=== PATIENT | male | born 2000 | race Caucasian/White ===

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

== ENCOUNTER 2021-12-06 17:59 | Emergency (ER) | payer BC ==
--- OUTSIDE RECORDS SUMMARY | 2021-12-06 18:02 | XMS REPORT | Continuity of Care Document ---
:2000 Author Organization [facility] t Address [address] [place] [address] [place] [id number] Care Team Providers Name Role Phone Unavailable Unavailable Unavailable Problems This patient has no known problems. Allergies, Adverse Reactions, Alerts This patient has no known allergies or adverse reactions. Medications This patient has no known medications. Procedures This patient has no known procedures. Results This patient has no known results.
[2021-12-06] MEDS ORDERED: ASPIRIN 325 MG TAB ONE (18:43)
[2021-12-06] MEDS ORDERED: DIAZEPAM 10 MG/2 ML INJ SYRINGE ONE (18:43)
[2021-12-06] MEDS ORDERED: CETIRIZINE HCL 5 MG TABLET ONE (18:43)
[2021-12-06] MEDS ORDERED: ACETAMINOPHEN 500 MG TAB ONE (18:43)
[2021-12-06] MEDS ORDERED: FAMOTIDINE 20 MG/2 ML VIAL IV ONE (18:44)
[2021-12-06] MEDS ORDERED: ONDANSETRON 4 MG/2 ML VIAL ONE (18:44)
[2021-12-06] MEDS ORDERED: NA CHLORIDE 0.9% 1,000 ML ONE ×2 (18:55→19:47)
[2021-12-06 18:59] LABS: Absolute Lymphocytes (CBC) 0.5 K/uL (0.7-4.9); Hematocrit 41.1 % (39.6-49.0); Lymphocytes % 8.9 % (15.3-44.8); MCV 76.9 fL (80-100); MPV 6.7 fL (7.6-11.3); RBC Red Blood Cell Count 5.34 M/uL (4.33-5.43)
[2021-12-06 19:13] LABS: Albumin 3.8 g/dL (3.4-5.0); Bilirubin Total 0.3 mg/dL (0.2-1.0); Potassium 3.3 mmol/L (3.5-5.1); Protein, Total 7.5 g/dL (6.4-8.2)
[2021-12-06] MEDS ORDERED: FAMOTIDINE 20 MG TAB ONE (20:38)
[2021-12-06] MEDS ORDERED: AZITHROMYCIN 250 MG TAB ONE (20:38)
[2021-12-06] MEDS ORDERED: POTASSIUM 25 MEQ EFFERV TAB ONE (21:23)
--- NOTE | 2021-12-06 21:42 | ER ---
Nurse's Notes [facility] Name: Donell Merrill Age: 21 yrs Sex: Male : 2000 Arrival Date: 12/06/2021 Time: 18:00 Bed 19 Private MD: Diagnosis: Coronavirus infection, unspecified;SARS-associated coronavirus as the cause of diseases classified elsewhere;Fever, unspecified;Hypokalemia Presentation: 12/06 18:09 Chief complaint: Patient states: tested positive for COVID today, c/o diff breathing , iw migraine, hands numbness, skin sensitivity, no cough, symptoms started today , had motrin and naproxen and an albuterol breathing treatment. Coronavirus screen: Client presents with at least one sign or symptom that may indicate coronavirus-19. Ebola Screen: Patient negative for fever greater than or equal to 101.5 degrees Fahrenheit, and additional compatible Ebola Virus Disease symptoms Patient denies exposure to infectious person. Patient denies travel to an Ebola-affected area in the 21 days before illness onset. No symptoms or risks identified at this time. Initial Sepsis Screen: Does the patient meet any 2 criteria? RR > 20 per min. HR > 90 bpm. Does the patient have a suspected source of infection? No. Patient's initial sepsis screen is negative. Risk Assessment: Do you want to hurt yourself or someone else? Patient reports no desire to harm self or others. Onset of symptoms was December 06, 2021. 18:09 Method Of Arrival: Ambulatory iw 18:09 Acuity: MICHAEL 3 iw Historical: - Allergies: 18:11 No Known Allergies; iw - Home Meds: 18:11 None [Active]; iw - PMHx: 18:11 ADD/ADHD; iw - PSHx: 18:11 None; iw Screenin:14 Abuse screen: Denies threats or abuse. Denies injuries from another. Nutritional mb8 screening: No deficits noted. Tuberculosis screening: No symptoms or risk factors identified. Fall Risk None identified. Assessment: 18:13 General: Appears uncomfortable, ill, Behavior is calm, cooperative, appropriate for mb8 age. Cardiovascular: Reports fatigue, lightheadedness, nausea, shortness of breath. Respiratory: Airway is patent Respiratory effort is even, Respiratory pattern is tachypnea Breath sounds are clear bilaterally. 19:06 General: Appears uncomfortable, Behavior is calm, cooperative. Pain: Complains of pain kd3 in body aches. Neuro: Level of Consciousness is awake, alert, obeys commands, Oriented to person, place, time, situation. Cardiovascular: Patient's skin is warm and dry. Rhythm is sinus rhythm. 19:42 Reassessment: Patient and/or family updated on plan of care and expected duration. Pain kd3 level reassessed. Patient is alert, oriented x 3, equal unlabored respirations, skin warm/dry/pink. 21:23 Reassessment: Patient and/or family updated on plan of care and expected duration. Pain kd3 level reassessed. Patient is alert, oriented x 3, equal unlabored respirations, skin warm/dry/pink. Patient states feeling better. Patient states symptoms have improved. Vital Signs: 18:09 BP 137 / 77; Pulse 136; Resp 22; Temp 101.2; Pulse Ox 99% on R/A; iw 19:05 BP 124 / 76; Pulse 109; Resp 20; Temp 100.2; Pulse Ox 100% on R/A; kd3 21:23 BP 107 / 39; Pulse 99; Resp 19; Temp 100.6(O); Pulse Ox 98% on R/A; kd3 Jessica Coma Score: 18:13 Eye Response: spontaneous(4). Verbal Response: oriented(5). Motor Response: obeys snw commands(6). Total: 15. ED Course: 18:00 Patient arrived in ED. am2 18:00 Luiza Martinez FNP-C is [facility]. snw 18:00 Dion Scott MD is Attending Physician. snw 18:11 Triage completed. iw 18:12 Arm band placed on. iw 18:13 Sergey Flowers, RN is Primary Nurse. mb8 18:14 Patient has correct armband on for positive identification. mb8 18:14 No provider procedures requiring assistance completed. mb8 18:44 Flu Sent. mb8 18:44 SARS-COV-2 RT PCR (Document "Date of Onset" if Symptomatic) Sent. mb8 20:02 Attending Physician role handed off by Dion Scott MD carlita 20:02 Braeden Mcgovern MD is Attending Physician. carlita 20:37 Lactate Sent. kd3 21:54 IV discontinued, intact, bleeding controlled, No redness/swelling at site. Pressure tw5 dressing applied. Administered Medications: 18:43 CANCELLED (Physician Discretion): Ondansetron 4 mg PO once mb8 18:43 Drug: Aspirin 325 mg Route: PO; mb8 19:41 Follow up: Response: No adverse reaction kd3 18:43 Drug: Zofran (Ondansetron) 4 mg Route: IVP; Site: right antecubital; mb8 19:41 Follow up: Response: No adverse reaction; Nausea is decreased kd3 18:44 Drug: Pepcid (famotidine) 20 mg Route: IVP; Site: right antecubital; mb8 19:42 Follow up: Response: No adverse reaction kd3 18:44 Drug: Valium (diazepam) 5 mg Route: IVP; Site: right antecubital; mb8 19:42 Follow up: Response: No adverse reaction kd3 18:44 Drug: Tylenol 1000 mg Route: PO; mb8 19:42 Follow up: Response: No adverse reaction; Temperature is decreased kd3 18:44 Drug: ZyrTEC - Cetirizine 10 mg Route: PO; mb8 19:42 Follow up: Response: No adverse reaction kd3 18:46 Drug: NS 0.9% 1000 ml Route: IV; Rate: 1 bolus; Site: right antecubital; mb8 19:41 Drug: NS 0.9% 1000 ml Route: IV; Rate: 1 bolus; Site: right antecubital; kd3 20:36 Drug: Zithromax (azithromycin) 500 mg Route: PO; kd3 21:22 Follow up: Response: No adverse reaction kd3 20:37 Drug: Pepcid (famotidine) 20 mg Route: PO; kd3 21:22 Follow up: Response: No adverse reaction kd3 21:22 Drug: Potassium Effervescent Tablet 25 mEq Route: PO; kd3 21:30 Follow up: Response: No adverse reaction kd3 Medication: 18:14 VIS not applicable for this client. mb8 Outcome: 21:42 Discharge ordered by . carlita 21:54 Discharged to home ambulatory, with family. tw5 21:54 Condition: improved 21:54 Discharge instructions given to patient, family, Instructed on discharge instructions, follow up and referral plans. medication usage, Demonstrated understanding of instructions, follow-up care, medications, Prescriptions given X 4. 21:54 Patient left the ED. tw5 Signatures: Braeden Mcgovern MD MD cha Waters, Shelly, TON CYLINDER INSPECTOR-C TON CYLINDER INSPECTOR-Csnw Avelina Martinez, RN RN Phoebe Ventura Tiffany tw5 Nory Rosario RN RN kd3 Sergey Flowers RN RN mb8
--- NOTE | 2021-12-06 21:42 | EDPHYS ---
Physician Documentation [facility] Name: Donell Merrill Age: 21 yrs Sex: Male : 2000 Arrival Date: 12/06/2021 Time: 18:00 Bed 19 Private MD: ED Physician Braeden Mcgovern HPI: 12/06 18:22 This 21 yrs old Male presents to ER via Ambulatory with complaints of Breathing snw Difficulty, covid+. 18:22 The patient has shortness of breath at rest. Onset: The symptoms/episode began/occurred snw suddenly, today. Duration: The symptoms are continuous, and are steadily getting worse. Associated signs and symptoms: Pertinent positives: non-productive cough, fever, nausea, vomiting. Severity of symptoms: At their worst the symptoms were moderate. The patient has not experienced similar symptoms in the past. It is unknown whether or not the patient has recently seen a physician. + covid test today at home. Historical: - Allergies: 18:11 No Known Allergies; iw - Home Meds: 18:11 None [Active]; iw - PMHx: 18:11 ADD/ADHD; iw - PSHx: 18:11 None; iw ROS: 18:21 Eyes: Negative for injury, pain, redness, and discharge, ENT: Negative for injury, snw pain, and discharge, Neck: Negative for injury, pain, and swelling. 18:21 : Negative for injury, bleeding, discharge, and swelling, MS/Extremity: Negative for injury and deformity, Skin: Negative for injury, rash, and discoloration. 18:21 Psych: Negative for depression, anxiety, suicide ideation, homicidal ideation, and hallucinations. 18:21 Constitutional: Positive for body aches, chills, fatigue, fever, malaise. 18:21 Cardiovascular: Positive for palpitations. 18:21 Respiratory: Positive for cough, shortness of breath. 18:21 Abdomen/GI: Positive for nausea, vomiting. 18:21 Back: Positive for pain at rest. 18:21 Neuro: Positive for headache. Exam: 18:13 Eyes: Pupils equal round and reactive to light, extra-ocular motions intact. Lids and snw lashes normal. Conjunctiva and sclera are non-icteric and not injected. Cornea within normal limits. Periorbital areas with no swelling, redness, or edema. ENT: Nares patent. No nasal discharge, no septal abnormalities noted. Tympanic membranes are normal and external auditory canals are clear. Oropharynx with no redness, swelling, or masses, exudates, or evidence of obstruction, uvula midline. Mucous membranes moist. Neck: Trachea midline, no thyromegaly or masses palpated, and no cervical lymphadenopathy. Supple, full range of motion without nuchal rigidity, or vertebral point tenderness. No Meningismus. Chest/axilla: Normal chest wall appearance and motion. Nontender with no deformity. No lesions are appreciated. 18:13 Abdomen/GI: Soft, non-tender, with normal bowel sounds. No distension or tympany. No guarding or rebound. No evidence of tenderness throughout. Back: No spinal tenderness. No costovertebral tenderness. Full range of motion. MS/ Extremity: Pulses equal, no cyanosis. Neurovascular intact. Full, normal range of motion. Neuro: Awake and alert, GCS 15, oriented to person, place, time, and situation. Cranial nerves II-XII grossly intact. Motor strength 5/5 in all extremities. Sensory grossly intact. Cerebellar exam normal. Normal gait. 18:13 Constitutional: The patient appears alert, anxious, obese, uncomfortable. 18:13 Head/face: Noted is pallor. 18:13 Cardiovascular: Rate: tachycardic, Rhythm: regular, Pulses: no pulse deficits are appreciated, Heart sounds: normal. 18:13 Respiratory: the patient does not display signs of respiratory distress, Respirations: shallow respirations, tachypnea, that is moderate, Breath sounds: are clear throughout. 18:13 Skin: tinea versicolor. 18:13 Psych: Behavior/mood is anxious, Oriented to person, place, time. Vital Signs: 18:09 BP 137 / 77; Pulse 136; Resp 22; Temp 101.2; Pulse Ox 99% on R/A; iw 19:05 BP 124 / 76; Pulse 109; Resp 20; Temp 100.2; Pulse Ox 100% on R/A; kd3 21:23 BP 107 / 39; Pulse 99; Resp 19; Temp 100.6(O); Pulse Ox 98% on R/A; kd3 Jessica Coma Score: 18:13 Eye Response: spontaneous(4). Verbal Response: oriented(5). Motor Response: obeys snw commands(6). Total: 15. MDM: 18:13 Data reviewed: vital signs, nurses notes. ED course: Pt tested positive for CoVid on snw home test today. Neb tx prior to arrival. Temp 101.2 so HR 136bpm. Pt hyperventilating at 25 times/min. Pt meets sepsis markers but infection is viral. Will repeat CoVId PCR to confirm. 18:28 Patient medically screened. snw 19:34 Data interpreted: Pulse oximetry: on room air is 100 %. Interpretation: normal. snw Counseling: I had a detailed discussion with the patient and/or guardian regarding: the historical points, exam findings, and any diagnostic results supporting the discharge/admit diagnosis, lab results. 20:04 Physician consultation: Braeden Mcgovern MD was called at 20:05, was contacted at 20:05, snw regarding patient's condition, care transferred to Braeden Mcgovern MD. Transition of care: After a detail discussion of the patient's case, care is transferred to Braeden Mcgovern MD. 12/06 18:13 Order name: Lactate; Complete Time: 19:33 snw 12/06 18:13 Order name: CBC with Diff; Complete Time: 19:05 snw 12/06 18:13 Order name: CMP; Complete Time: 19:16 snw 12/06 18:13 Order name: Procalcitonin; Complete Time: 20:04 snw 12/06 18:21 Order name: Flu; Complete Time: 19:16 snw 12/06 18:21 Order name: SARS-COV-2 RT PCR (Document "Date of Onset" if Symptomatic); Complete Time: snw 19:37 12/06 19:37 Order name: Lactate; Complete Time: 21:42 snw 12/06 18:13 Order name: IV Saline Lock; Complete Time: 18:44 snw 12/06 18:13 Order name: Labs collected and sent; Complete Time: 18:44 snw 12/06 19:00 Order name: Recheck VS; Complete Time: 19:06 snw Administered Medications: 18:43 CANCELLED (Physician Discretion): Ondansetron 4 mg PO once mb8 18:43 Drug: Aspirin 325 mg Route: PO; mb8 19:41 Follow up: Response: No adverse reaction kd3 18:43 Drug: Zofran (Ondansetron) 4 mg Route: IVP; Site: right antecubital; mb8 19:41 Follow up: Response: No adverse reaction; Nausea is decreased kd3 18:44 Drug: Pepcid (famotidine) 20 mg Route: IVP; Site: right antecubital; mb8 19:42 Follow up: Response: No adverse reaction kd3 18:44 Drug: Valium (diazepam) 5 mg Route: IVP; Site: right antecubital; mb8 19:42 Follow up: Response: No adverse reaction kd3 18:44 Drug: Tylenol 1000 mg Route: PO; mb8 19:42 Follow up: Response: No adverse reaction; Temperature is decreased kd3 18:44 Drug: ZyrTEC - Cetirizine 10 mg Route: PO; mb8 19:42 Follow up: Response: No adverse reaction kd3 18:46 Drug: NS 0.9% 1000 ml Route: IV; Rate: 1 bolus; Site: right antecubital; mb8 19:41 Drug: NS 0.9% 1000 ml Route: IV; Rate: 1 bolus; Site: right antecubital; kd3 20:36 Drug: Zithromax (azithromycin) 500 mg Route: PO; kd3 21:22 Follow up: Response: No adverse reaction kd3 20:37 Drug: Pepcid (famotidine) 20 mg Route: PO; kd3 21:22 Follow up: Response: No adverse reaction kd3 21:22 Drug: Potassium Effervescent Tablet 25 mEq Route: PO; kd3 21:30 Follow up: Response: No adverse reaction kd3 Disposition: 12/07 11:27 Chart complete. snw Disposition Summary: 12/06/21 21:42 Discharge Ordered Location: Home carlita Problem: new carlita Symptoms: have improved carlita Condition: Stable carlita Diagnosis - Coronavirus infection, unspecified carlita - SARS-associated coronavirus as the cause of diseases classified elsewhere carlita - Fever, unspecified carlita - Hypokalemia carlita Followup: carlita - With: Private Physician - When: 2 - 3 days - Reason: Recheck today's complaints, Continuance of care, Re-evaluation by your physician Discharge Instructions: - Discharge Summary Sheet carlita - Fever, Adult carlita - Viral Respiratory Infection, [id number] carlita - Aspirin and Your Heart carlita - COVID-19 carlita - COVID-19 Frequently Asked Questions carlita - Things to Know about the COVID-19 Pandemic - [facility] carlita - 10 Things You Can Do to Manage Your COVID-19 Symptoms at Home - [facility] carlita - COVID-19: Quarantine vs. Isolation - [facility] - Prevent the Spread of COVID-19 if You Are Sick - [facility] - Viral Illness, Adult [facility] Forms: - Medication Reconciliation Form carlita - Thank You Letter carlita - Antibiotic Education [facility] - Prescription Opioid Use [facility] Prescriptions: - Pepcid 20 mg Oral Tablet - take 1 tablet by ORAL route every 12 hours for 21 days; 42 tablet; Refills: 0, [facility] Product Selection Permitted - budesonide 180 mcg/actuation Inhalation aerosol powdr breath activated - inhale 1 puff by INHALATION route 2 times per day; 1 Pump; Refills: 0, Product carlita Selection Permitted - Tessalon Perles 100 mg Oral Capsule - take 2 capsule by ORAL route every 8 hours As needed; 45 capsule; Refills: 0, [facility] Product Selection Permitted - Zithromax Z-Alexander 250 mg Oral Tablet - take 1 tablet by ORAL route as directed for 5 days Day 1 - take two (2) tablets [facility] one time. Day 2, 3, 4 , 5 take one (1) tablet once daily.; 6 tablet; Refills: 0, Product Selection Permitted Signatures: Dispatcher [employer] EDBraeden Schmidt MD MD cha Waters, Shelly, UPHOLSTERY ESTIMATOR-C UPHOLSTERY ESTIMATOR-Csnw Avelina Martinez RN Nory Maya RN RN kd3 Sergey Flowers RN RN mb8 Corrections: (The following items were deleted from the chart) 12/06 18:43 18:13 Ondansetron 4 mg PO once ordered. [email or web address] mb8
[2021-12-06 23:22] VITALS: BP 107/39; TEMP 100.6; O2SAT 98
== END 2021-12-06 21:54 | disposition home or self-care (01) ==
LOC: ER 17:59
DX: U07.1 COVID-19 (principal); E87.6 Hypokalemia
CPT/HCPCS: 85025; 36415; 83605 ×2; 80053; 84145; 87804 ×2; 96375; 96374; 99284; U0003; J3360; J7030 ×2; J2405

== ENCOUNTER 2023-07-08 12:30 | Emergency (ER) | payer BC ==
--- OUTSIDE RECORDS SUMMARY | 2023-07-08 12:33 | XMS REPORT | Continuity of Care Document ---
Author Name Unknown Address [address] [place] [address] [employer] Address [address] [place] [address] [address] [place] [address] Care Team Providers Care Spot Sprayer Name Role Phone Unavailable Unavailable Unavailable
[2023-07-08 13:28] LABS: Absolute Basophils 0.1 K/uL (0-0.5); Absolute Eosinophils 0.2 K/uL (0-0.5); Absolute Lymphocytes (CBC) 2.9 K/uL (0.7-4.9); Absolute Monocytes 0.6 K/uL (0.1-1.3); Absolute Neutrophil 7.7 K/uL (1.8-8.0); Eosinophils % 1.8 % (0-4.4); Hemoglobin 14.4 g/dL (13.6-17.9); Lymphocytes % 25.3 % (15.3-44.8); MCHC 33.5 g/dL (32.0-36.0); MCV 77.8 fL (80-100); Monocytes % 5.1 % (3.3-12.3); Neutrophils % 66.8 % (41.7-73.7); Nucleated RBC Absolute Count 0.1 (0-0); Nucleated Red Blood Cells % 0.6 % (0-0); Platelets 340 thou/uL (152-406); RBC Red Blood Cell Count 5.53 M/uL (4.33-5.43); Red Cell Distribution Width 14.3 % (12.1-15.2)
[2023-07-08 13:40] LABS: Anion Gap 8.6 mEq/L (5.0-15.0); Potassium 3.6 mEq/L (3.5-5.1); Troponin High Sensitivity 3.3 pg/mL (<58.9)
--- NOTE | 2023-07-08 14:06 | RAD REPORT ---
EXAM DESCRIPTION: RAD - Chest Single View - 07/08/2023 1:45 pm CLINICAL HISTORY: CHEST PAIN Chest pain. COMPARISON: CHEST PA AND LAT 2 VIEW dated 08/20/2014; CHEST SINGLE VIEW dated 03/03/2011 FINDINGS: Portable technique limits examination quality. The lungs are grossly clear. The heart is normal in size. No displaced fractures. IMPRESSION: No acute intrathoracic process suspected.
--- NOTE | 2023-07-08 14:08 | ER ---
Nurse's Notes [facility] Name: Donell Merrill Age: 23 yrs Sex: Male : 2000 Arrival Date: 07/08/2023 Time: 12:30 Bed 20 Private MD: Diagnosis: Chest pain, unspecified Presentation: 07/07 12:42 Chief complaint: Sudden onset midsternal chest pain and palpitations while walking in [place] [employer] at work 3 hours [employer]. Coronavirus screen: At this time, the client does not indicate any symptoms associated with coronavirus-19. Ebola Screen: No symptoms or risks identified at this time. Initial Sepsis Screen: Does the patient meet any 2 criteria? No. Patient's initial sepsis screen is negative. Does the patient have a suspected source of infection? No. Patient's initial sepsis screen is negative. Risk Assessment: Do you want to hurt yourself or someone else? Patient reports no desire to harm self or others. Onset of symptoms was July 08, 2023. 12:42 Method Of Arrival: Ambulatory hb 12:42 Acuity: MICHAEL 3 hb Triage Assessment: 12:43 General: Appears in no apparent distress. Behavior is calm, cooperative. Pain: Pain hb currently is 4 out of 10 on a pain scale. Neuro: Level of Consciousness is awake, alert, obeys commands, Oriented to person, place, time, situation. Cardiovascular: Reports chest pain, Patient's skin is warm and dry. Respiratory: Respiratory effort is even, unlabored, Respiratory pattern is regular, symmetrical. Historical: - Allergies: 12:43 No Known Allergies; hb - Home Meds: 12:43 None [Active]; hb - PMHx: 12:43 ADD/ADHD; hb - PSHx: 12:43 None; hb - Immunization history:: Adult Immunizations up to date. - Infectious Disease History:: Denies. - Social history:: Smoking status: Patient denies any tobacco usage or history of. Screenin:31 [facility] ED Fall Risk Assessment (Adult) History of falling in the last 3 months, ld1 including since admission No falls in past 3 months (0 pts). Abuse screen: Denies threats or abuse. Denies injuries from another. Nutritional screening: No deficits noted. Tuberculosis screening: No symptoms or risk factors identified. Assessment: 13:31 General: Appears in no apparent distress. comfortable, Behavior is calm, cooperative, ld1 appropriate for age. Pain: Complains of pain in chest Pain does not radiate. Pain currently is 8 out of 10 on a pain scale. Quality of pain is described as throbbing, Pain began suddenly, Is continuous. Neuro: Level of Consciousness is awake, alert, obeys commands, Oriented to person, place, time, situation. Cardiovascular: Capillary refill < 3 seconds Patient's skin is warm and dry. Rhythm is sinus rhythm. Respiratory: Airway is patent Respiratory effort is even, unlabored. GI: Abdomen is round non-distended. : No signs and/or symptoms were reported regarding the genitourinary system. EENT: No signs and/or symptoms were reported regarding the EENT system. Derm: No signs and/or symptoms reported regarding the dermatologic system. Musculoskeletal: No signs and/or symptoms reported regarding the musculoskeletal system. Vital Signs: 12:42 BP 155 / 94; Pulse 81; Resp 16; Temp 97.7(TE); Pulse Ox 100% on R/A; Weight 140.61 kg; hb Height 6 ft. 2 in. ; Pain 4/10; 13:31 BP 133 / 77; Pulse 66; Resp 18; Pulse Ox 98% on R/A; Pain 8/10; ld1 12:42 Body Mass Index 39.80 (140.61 kg, 187.96 cm) hb 12:42 Pain Scale: Adult hb 13:31 Pain Scale: Adult ld1 ED Course: 12:33 Patient arrived in ED. mg5 12:34 Chad Grande MD is Attending Physician. bo1 12:40 EKG done, by ED staff, reviewed by Chad Grande MD. hb 12:43 Triage completed. hb 12:43 Arm band placed on. hb 12:53 Carol Flowers, JING is Primary Nurse. mg7 13:07 XRAY Chest (1 view) Sent. mg7 13:14 Inserted saline lock: 20 gauge in left antecubital area, using aseptic technique. Blood bp collected. 13:31 Patient has correct armband on for positive identification. Placed in gown. Bed in low ld1 position. Call light in reach. Side rails up X2. bus monitor on. Pulse ox on. NIBP on. Door closed. Noise minimized. Warm blanket given. 13:31 No provider procedures requiring assistance completed. Oxygen administration via nasal ld1 cannula. 13:47 XRAY Chest (1 view) In Process Unspecified. EDMS Administered Medications: No medications were administered Medication: 13:31 VIS not applicable for this client. ld1 Outcome: 14:08 Discharge ordered by MD. lopez 14:24 Patient left the ED. ld1 Signatures: Dispatcher [employer] EDMS Jennifer Ballesteros RN RN Arnaldo Mathews RN RN Naida Hernandez RN RN ld1 Radha Kat mg5 Chad Grande MD MD bo1 Carol Flowers RN RN mg7
--- NOTE | 2023-07-08 14:08 | EDPHYS ---
Physician Documentation [facility] Name: Donell Merrill Age: 23 yrs Sex: Male : 2000 Arrival Date: 07/08/2023 Time: 12:30 Bed 20 Private MD: ED Physician Chad Grande HPI: 07/07 14:11 This 23 yrs old Male presents to ER via Ambulatory with complaints of Chest Pain, High bo1 Blood Pressure, Palpitations. 12:54 The patient or guardian reports chest pain that is located primarily in the anterior bo1 chest wall, No radiation. Associated signs and symptoms: The patient has no apparent associated signs or symptoms. The chest pain is described as a pressure. Duration: The patient or guardian reports a single episode, that is still ongoing, and unchanged, that lasted 2.5 hour(s), while at work - school. Severity of pain: in the emergency department the pain is a 3 / 10. No prior Hx. 12:56 Pt reports that he "may have had" a fast heartbeat.. bo1 Historical: - Allergies: 12:43 No Known Allergies; hb - Home Meds: 12:43 None [Active]; hb - PMHx: 12:43 ADD/ADHD; hb - PSHx: 12:43 None; hb - Immunization history:: Adult Immunizations up to date. - Infectious Disease History:: Denies. - Social history:: Smoking status: Patient denies any tobacco usage or history of. ROS: 12:56 Cardiovascular: Negative for orthopnea, Exertional hx or sxs, bo1 12:56 All other systems are negative, 13:04 Respiratory: Negative for cough, dyspnea on exertion, shortness of breath, bo1 14:12 MS/extremity: Negative for acute changes, bo1 14:15 Neck: Negative for injury, pain, and swelling, bo1 Exam: 13:00 ECG was reviewed by the Attending Physician. bo1 13:05 Neck: Exam negative for lymphadenopathy, masses, swelling, bo1 13:05 Cardiovascular: Rate: normal, Rhythm: regular, Pulses: Pulses are 2+ in right brachial bo1 artery, left brachial artery, left carotid pulse and right carotid pulse. Heart sounds: normal, 13:05 Abdomen/GI: Palpation: abdomen is soft and non-tender, 13:59 Constitutional: The patient appears in no acute distress, well developed, well bo1 nourished, 13:59 Head/face: Exam is negative for 13:59 Chest/axilla: Exam negative for acute changes, crepitus, tenderness, 13:59 Respiratory: the patient does not display signs of respiratory distress, Respirations: normal, Breath sounds: are clear throughout, Respiratory rate: Normal rate 13:59 Musculoskeletal/extremity: Exam is negative for edema, 13:59 Skin: Exam negative for diaphoresis, pallor, 14:14 Head/Face: Normocephalic, atraumatic. bo1 Vital Signs: 12:42 BP 155 / 94; Pulse 81; Resp 16; Temp 97.7(TE); Pulse Ox 100% on R/A; Weight 140.61 kg; hb Height 6 ft. 2 in. ; Pain 4/10; 13:31 BP 133 / 77; Pulse 66; Resp 18; Pulse Ox 98% on R/A; Pain 8/10; ld1 12:42 Body Mass Index 39.80 (140.61 kg, 187.96 cm) hb 12:42 Pain Scale: Adult hb 13:31 Pain Scale: Adult ld1 MDM: 13:35 ED course: Pt is getting his portable xray. Unchanged condition, no new c/o. Mother bo1 still present. Awaiting labs. Reassured.. 13:53 ED course: Discussed lab reports and prelim wet read of the CXR.. bo1 13:58 Differential diagnosis: abnormal EKG, coronary artery disease chest wall pain. bo1 14:06 Patient medically screened. bo1 14:10 ED course: Advised pt to drink more fluids, water \\T\\ 6 - 8oz per day.. bo1 14:11 Data reviewed: vital signs, nurses notes, lab test result(s), EKG, radiologic studies. bo1 07/07 12:41 Order name: Basic Metabolic Panel; Complete Time: 13:43 bo1 07/07 12:41 Order name: CBC with Diff; Complete Time: 13:43 bo1 07/07 12:41 Order name: Troponin HS; Complete Time: 13:43 bo1 07/07 12:41 Order name: XRAY Chest (1 view); Complete Time: 14:06 bo1 07/07 12:41 Order name: EKG; Complete Time: 12:42 bo1 07/07 12:41 Order name: Cardiac monitoring; Complete Time: 12:53 bo1 07/07 12:41 Order name: EKG - Nurse/Tech; Complete Time: 12:58 bo1 07/07 12:58 Interpretation: Within normal limits. bo1 07/07 12:41 Order name: IV Saline Lock; Complete Time: 13:07 bo1 07/07 12:41 Order name: Labs collected and sent; Complete Time: 13:07 bo1 07/07 12:41 Order name: O2 Per Protocol; Complete Time: 13:06 bo1 07/07 12:41 Order name: O2 Sat Monitoring; Complete Time: 13:07 bo1 EC:00 Rate is 75 beats/min. Rhythm is regular. QRS [place] is Normal. ME interval is normal. QRS bo1 interval is normal. QT interval is normal. No Q waves. T waves are Inverted in lead III. No ST changes noted. Clinical impression: Normal ECG. Administered Medications: No medications were administered Disposition Summary: 07/08/23 14:08 Discharge Ordered Notes: Location: Home bo1 Problem: new bo1 Symptoms: are unchanged bo1 Condition: Stable bo1 Diagnosis - Chest pain, unspecified bo1 Followup: bo1 - With: Private Physician - When: As needed - Reason: Discharge Instructions: - Discharge Summary Sheet bo1 Forms: - Work release form ld1 - Medication Reconciliation Form bo1 - Thank You Letter bo1 - Antibiotic Education bo1 - Prescription Opioid Use bo1 - Patient Portal Instructions bo1 - Leadership Thank You Letter bo1 Prescriptions: - Naprosyn 500 mg Oral Tablet - take 1 tablet ORAL route 2 times per day take with food; 30 tablet; Refills: 0, bo1 Product Selection Permitted Signatures: Dispatcher [employer] EDJennifer Ramirez RN RN Chad Grande MD MD bo1 Corrections: (The following items were deleted from the chart) 12:57 12:54 The chest pain is described as a pressure, bo1 bo1
[2023-07-08 15:41] VITALS: BP 133/77; TEMP 97.7; O2SAT 98
--- NOTE | 2023-07-09 11:56 | EKG ---
Test Date: 2023-07-08 Test Time: 12:40:05 Cdl Instructor: HB MEASUREMENT RESULTS: Intervals: Rate: 75 OK: 146 QRSD: 96 QT: 350 QTc: 390 [place]: P: 32 OK: 146 QRS: 76 T: 21 INTERPRETIVE STATEMENTS: Normal sinus rhythm with sinus arrhythmia Normal ECG Compared to ECG 08/20/2014 15:14:22 Sinus bradycardia no longer present Electronically Signed On 07-09-23 11:54:05 CDT by Mynor Jovel
== END 2023-07-08 14:24 | disposition home or self-care (01) ==
LOC: ER 12:30
DX: R07.89 Other chest pain (principal)
CPT/HCPCS: 36415; 71045; 80048; 84484; 85025; 93005; 99285